=== PATIENT | male | born 1995 | race Caucasian/White ===

== ENCOUNTER 2017-11-02 14:51 | Inpatient (IN) | payer OTHER ==
[2017-11-02] MEDS ORDERED: CEFAZOLIN/Water 2 GM/20 ML SYRINGE ONE (15:02)
[2017-11-02] MEDS ORDERED: Adacel (T-DAP) 0.5 ML VIAL ONE ×2 (15:25→15:29)
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
[2017-11-02 15:37] LABS: #Basophils 0.1 thou/uL (0.0-0.2); #Eosinphils 0.5 thou/uL (0.0-0.7); #Lymphocytes 2.8 thou/uL (1.20-3.40); #Monocytes 0.7 thou/uL (0.11-0.59); #Neutrophils 5.2 thou/uL (1.40-6.50); %Basophils 1.1 % (0.0-1.0); %Lymphocytes 29.9 % (21.0-51.0); %Monocytes 7.9 % (0.0-10.0); %Neutrophils 56.2 % (42.0-75.0); Hemoglobin 16.2 g/dL (14.0-18.0); Mean Corpuscular HGB CONC 31.9 g/dL (32.0-36.0); Mean Corpuscular Hemoglobin 28.1 pg (27.0-31.0); Mean Corpuscular Volume 88.1 fl (80.0-94.0); Platelet Count 410 thou/uL (130-400); RBC Distribution Width 11.6 % (11.5-14.5); Red Blood Cell (RBC) Count 5.77 mill/uL (4.70-6.10); White Blood Cell (WBC) Count 9.3 thou/uL (4.8-10.8)
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
[2017-11-02 15:55] LABS: ALT (SGPT) 39 U/L (8-55); AST (SGOT) 23 U/L (5-34); Albumin 4.6 g/dL (3.5-5.0); Alkaline Phosphatase 51 U/L (40-150); Anion Gap 12 mmol/L (10-20); BUN (Urea Nitrogen) 14 mg/dL (8.9-20.6); Bilirubin, Total 0.7 mg/dL (0.2-1.2); Calc. Creatinine Clearance 0 mL/min (70-130); Calcium 9.7 mg/dL (7.8-10.44); Carbon Dioxide 24 mmol/L (22-29); Chloride 105 mmol/L (98-107); Estimated GFR-MDRD Greater than 90; Globulin 2.6 g/dL (2.4-3.5); Glucose 148 mg/dL (70-105); Potassium 3.8 mmol/L (3.5-5.1); Protein, Total 7.2 g/dL (6.0-8.3); Sodium 137 mmol/L (136-145)
[2017-11-02] MEDS ORDERED: Lidocaine 1% (PF) 30 ML VIAL ONE (16:15)
[2017-11-02] MEDS ORDERED: Morphine 4 MG/ML VIAL ONE (16:39)
[2017-11-02] MEDS ORDERED: Dextrose 50% Abboject 50 ML SYRINGE SLOW IVP PRN (17:33)
[2017-11-02] MEDS ORDERED: Dextrose 5% in Water 1,000 ML IV PRN (17:33)
[2017-11-02] MEDS ORDERED: Ondansetron ODT 4 MG TAB PO PRN (17:33)
[2017-11-02] MEDS ORDERED: hydrALAZINE 20 MG/ML VIAL SLOW IVP PRN (17:33)
[2017-11-02] MEDS ORDERED: Bacitracin Zinc 1 Packet ONE (18:27)
[2017-11-02] MEDS: Famotidine 20 MG TAB PO SCH (20:03)
[2017-11-02] MEDS: Acetaminophen 500 MG TAB PO SCH (20:15)
[2017-11-02] MEDS: traMADol HCl 50 MG TAB PO SCH (20:15)
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
[2017-11-02 21:30] VITALS: BMI 28.5
[2017-11-02] MEDS: traMADol HCl 50 MG TAB PO PRN (21:52)
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
[2017-11-03] MEDS: traMADol HCl 50 MG TAB PO SCH ×2 (01:44→08:49)
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
[2017-11-03] MEDS: Acetaminophen 500 MG TAB PO SCH ×2 (03:07→08:49)
[2017-11-03] MEDS: traMADol HCl 50 MG TAB PO PRN (04:01)
--- NOTE | 2017-11-03 08:42 | CT ---
PRELIMINARY REPORT/[facility]/EMERGENTY AFTER-HOURS PROCEDURE CT Head Without Intravenous Contrast CLINICAL HISTORY: 22 years old, male; Condition or disease; Other: Tbi; Patient HX: F/u traumatic brain injury TECHNIQUE: Axial computed tomography images of the head/brain without intravenous contrast. COMPARISON: CT Brain WO Con 2017-11-02 15:14 FINDINGS: No definite acute skull fracture. Included paranasal sinuses are essentially clear. No acute intracra nial hemorrhage or mass effect. Ventricle size is normal for age. No definite acute infarct by CT. IMPRESSION: No acute intracranial bleed or mass effect. Thank you for allowing us to participate in the care of your patient. Dictated and Authenticated by: Robert Olivera MD 11/03/2017 5:57 AM Central Time ([place] & [place]) FINAL REPORT HEAD CT IWTHOUT CONTRAST: DATE: 11/03/17. COMPARISON: 11/02/17. HISTORY: Recent traumatic brain injury, reevaluate intracranial hemorrhage. FINDINGS: I agree with the preliminary [facility] report. No intracranial hemorrhage, midline shift, mass effect, o r ventricular enlargement. Osseous structures unremarkable. IMPRESSION: No acute findings. POS: [facility]
[2017-11-03] MEDS: Famotidine 20 MG TAB PO SCH (08:50)
[2017-11-03] MEDS ORDERED: Scopolamine 1.5 mg/72 hour Patch TD SCH (10:00)
[2017-11-03 11:45] VITALS: BP 148/90; TEMP 99
== END 2017-11-03 12:52 | disposition home or self-care (01) | DRG 605 ==
LOC: ERS 14:51 → SURG A 17:00
PROVIDERS: ADMIT Surgery; ATTEND Surgery
PROC: 0HQLXZZ Repair Left Lower Leg Skin, External Approach (ICD-10-PCS; principal; 2017-11-02)
DX: S81.012A Laceration without foreign body, left knee, initial encounter (principal); S06.300A Unspecified focal traumatic brain injury without loss of consciousness, initial encounter; S80.811A Abrasion, right lower leg, initial encounter; S60.512A Abrasion of left hand, initial encounter; S60.511A Abrasion of right hand, initial encounter; X58.XXXA Exposure to other specified factors, initial encounter; Y93.89 Activity, other specified; Y92.488 Other paved roadways as the place of occurrence of the external cause; S30.810A Abrasion of lower back and pelvis, initial encounter
CPT/HCPCS: 12042; 36415; 70450; 71045; 72125; 72170; 80053; 85025; 90471; 90715; 96374; 96375; G0390; J2001; J2270

== ENCOUNTER 2017-12-17 14:10 | Outpatient (CLI) | payer OTHER ==
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
== END 2017-12-17 14:11 | disposition home or self-care (01) ==
LOC: TBSIIMAG 14:10
PROVIDERS: ATTEND Orthopaedic Surgery
DX: S83.522A Sprain of posterior cruciate ligament of left knee, initial encounter (principal); S83.242A Other tear of medial meniscus, current injury, left knee, initial encounter; S82.142A Displaced bicondylar fracture of left tibia, initial encounter for closed fracture

== ENCOUNTER → 2018-01-03 | Day surgery (SDC) | payer OTHER ==
[2017-12-31 08:36] VITALS: BMI 28.0
[~2018-01-03] MED LIST: Bupivacaine HCl 0.5%/Epinephrine 1:200,000/PF 30 ml Vial ONE; Clindamycin/D5W 600 mg/50 ml Premix Bag ONE; Fentanyl 100 MCG/2 ML VIAL ONE; Ketorolac Tromethamine 30 MG/ML VIAL ONE; Lidocaine 1% PF 5 ML VIAL ONE; Lidocaine 2% w/Epinephrine 1:200K 20 ML VIAL ONE; Midazolam HCl 2 mg/2 ml Vial ONE; PROPOFOL 20 ML ONE; PROPOFOL 200 MG/20 ML VIAL ONE
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
== END ==
LOC: SDC 08:45
PROVIDERS: ATTEND Orthopaedic Surgery
PROC: 0SBD4ZZ Excision of Left Knee Joint, Percutaneous Endoscopic Approach (ICD-10-PCS; principal; 2018-01-03)
DX: M23.42 Loose body in knee, left knee (principal); J45.909 Unspecified asthma, uncomplicated; F90.9 Attention-deficit hyperactivity disorder, unspecified type; Z88.1 Allergy status to other antibiotic agents
CPT/HCPCS: G8978-GP-CL; G8979-GP-CL; G8980-GP-CL; J0670; J1885; J2001; J2250; J2704; J3010; J3490

== ENCOUNTER 2018-12-08 00:07 | Outpatient (CLI) | payer OTHER ==
[2018-12-08 13:08] LABS: #Eosinphils 0.3 thou/uL (0.0-0.7); #Lymphocytes 2.1 thou/uL (1.20-3.40); #Monocytes 0.6 thou/uL (0.11-0.59); #Neutrophils 3.3 thou/uL (1.40-6.50); %Basophils 0.6 % (0.0-1.0); %Eosinophils 4.9 % (0.0-10.0); %Monocytes 9.8 % (0.0-10.0); %Neutrophils 51.7 % (42.0-75.0); Hemoglobin 15.5 g/dL (14.0-18.0); Mean Corpuscular HGB CONC 34.3 g/dL (32.0-36.0); Mean Corpuscular Hemoglobin 30.4 pg (27.0-31.0); Mean Corpuscular Volume 88.7 fL (78.0-98.0); Mean Platelet Volume 6.4 fL (7.4-10.4); Platelet Count 298 thou/uL (130-400); Red Blood Cell (RBC) Count 5.11 mill/uL (4.70-6.10); White Blood Cell (WBC) Count 6.4 thou/uL (4.8-10.8)
== END 2018-12-08 00:08 | disposition home or self-care (01) ==
LOC: LABBT 00:07
PROVIDERS: ATTEND Orthopaedic Surgery
DX: Z01.812 Encounter for preprocedural laboratory examination (principal); S83.521A Sprain of posterior cruciate ligament of right knee, initial encounter
CPT/HCPCS: 85025

== ENCOUNTER 2018-12-09 05:58 | Day surgery (SDC) | payer OTHER ==
[2018-12-09] MEDS ORDERED: Fentanyl 100 MCG/2 ML VIAL ONE ×2 (06:15→07:06)
[2018-12-09] MEDS ORDERED: Midazolam HCl 2 mg/2 ml Vial ONE (06:15)
[2018-12-09] MEDS ORDERED: Lidocaine 1% (PF) 30 ML VIAL ONE (06:16)
[2018-12-09] MEDS ORDERED: Milk Of Magnesia 30 ML UDCUP PO PRN (07:28)
[2018-12-09] MEDS ORDERED: diphenhydrAMINE 50 MG CAP PO PRN (07:28)
[2018-12-09] MEDS ORDERED: traMADol HCl 50 MG TAB PO PRN ×3 (07:28→08:02)
[2018-12-09] MEDS ORDERED: Ondansetron PF 4 MG/2 ML Vial IVP PRN ×2 (07:28→08:02)
[2018-12-09] MEDS ORDERED: Acetaminophen 500 MG TAB PO PRN (07:28)
[2018-12-09] MEDS ORDERED: Bisacodyl 10 MG SUPP PR PRN (07:28)
[2018-12-09] MEDS ORDERED: Methocarbamol 500 MG TAB PO PRN (07:28)
[2018-12-09] MEDS ORDERED: Morphine 4 MG/ML VIAL SLOW IVP PRN (07:28)
[2018-12-09] MEDS ORDERED: HYDROcodone/Acetaminophen 7.5/325 mg Tablet PO PRN ×2 (07:28)
[2018-12-09] MEDS ORDERED: PROVENTIL INHALER 6.7 G (200 INHALATIONS) INH PRN (07:31)
[2018-12-09] MEDS ORDERED: Clindamycin/D5W 900 mg/50 ml Premix Bag ONE (07:37)
[2018-12-09] MEDS ORDERED: Zolpidem Tartrate 5 MG TAB PO PRN (08:02)
[2018-12-09] MEDS ORDERED: Promethazine HCl 25 MG/ML VIAL IM PRN ×2 (08:02→10:55)
[2018-12-09] MEDS ORDERED: HYDROcodone/Acetaminophen 10/325 mg Tablet PO PRN ×2 (08:02)
[2018-12-09] MEDS ORDERED: Fentanyl 100 MCG/2 ML VIAL IV PRN (08:02)
[2018-12-09] MEDS ORDERED: Ropivacaine 0.2% 550 ML 550 ML NERVE BLCK SCH (08:02)
[2018-12-09] MEDS ORDERED: LISDEXAMFETAMINE DIMESYLATE PO SCH (09:00)
[2018-12-09] MEDS ORDERED: Ropivacaine 0.5% HCl/PF (150 MG/30 ML VIAL) ONE (10:41)
[2018-12-09] MEDS ORDERED: Ropivacaine 0.2% HCl/PF (40 MG/20 ML VIAL) ONE (10:41)
[2018-12-09] MEDS ORDERED: Ondansetron HCl/PF 4 MG/2 ML Vial IVP PRN (10:55)
[2018-12-09] MEDS ORDERED: Promethazine HCl 25 MG/ML VIAL SLOW IVP PRN (10:55)
[2018-12-09] MEDS ORDERED: PROPOFOL 200 MG/20 ML VIAL ONE (11:05)
[2018-12-09] MEDS ORDERED: Ondansetron PF 4 MG/2 ML Vial ONE (11:05)
[2018-12-09] MEDS ORDERED: Dexamethasone 20 MG/5 ML VIAL ONE (11:05)
[2018-12-09] MEDS ORDERED: Lidocaine 1% PF 5 ML VIAL ONE (11:05)
[2018-12-09] MEDS ORDERED: Ketorolac Tromethamine 30 MG/ML VIAL ONE (11:05)
[2018-12-09] MEDS ORDERED: Ketorolac Tromethamine 30 MG/ML VIAL IVP SCH (12:00)
--- NOTE | 2018-12-09 15:26 | OP ---
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 POSTOPERATIVE DIAGNOSES: 1. 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 2. Significant chondromalacia medial tibial plateau as well as the medial femoral condyle as well as some early chondromalacia on the medial facet of the patella. COLD STORAGE WORKER: Dr. Garcia as well as Samuel Sheth PA-C. The patient did have a general anesthetic as well as preoperative block. IMPLANTS: We used a 7 x 25 mm interference screw on the femur. We used a 9 x 28 mm BioComposite interference screw on the tibia as well as a bicortical metal screw with a soft tissue washer on the tibia. DISPOSITION: He did go to recovery room in stable condition. INDICATIONS: A 23-year-old male, who is nearly a year out from a traumatic injury, and at this time, he continues to have significant instability of his PCL and wanted to have this reconstructed. DESCRIPTION OF PROCEDURE: After verbal consent forms were explained and signed, he was taken to the operating room, and at this time, he was given general anesthetic. Once the level of anesthesia was appropriate, the tourniquet was placed onto the left thigh, and at this time, an exam under anesthesia was performed. A 3+ posterior drawer was confirmed, and the tibia did not bring back on its own. Melvina was negative. He had stable varus valgus. At this time, we then placed the leg in arthroscopic leg gil. We then prepped and draped in standard surgical fashion. The limb was exsanguinated and the tourniquet was taken to 300 mmHg. Inferolateral portal was established. Scope was placed into the knee joint. A needle localization technique was then used to make a medial working portal. Diagnostic arthroscopy commenced in the notch. The remnant PCL was there, and ACL was in good condition. There were a lot of small cartilaginous loose bodies floating around the knee, these were all removed with a suction shaver throughout this portion of the scope. Medial compartment showed the medial meniscus to be intact. There was some significant chondromalacia on the tibial plateau. Any loose chondral flaps were removed. Lateral compartment was in good condition. Gutters were swept through. No loose bodies were noted, and the patellofemoral joint showed the patient showed the patient started developing medial patellar arthritis. Trochlea was stable in good condition. At this time, we went about creating our posterior medial portal. The Arthrex posterior portal device was used through the lateral portal with the scope in the medial portal, and once were able to get around the back of the medial femoral condyle, we were able to palpate this, pushed it toward the skin, and then, we were able to cut down on this. We then placed a cannula down over top of this, and then, I used a switching stick to place the second metal photostat operator down into the posteromedial aspect of the knee. Once this was done, we then placed the camera into this posteromedial portal to evaluate the back of the knee. The shelf between the posterior tibial plateau and capsule was noted. A probe was used to delineate this, and at this time, we started a slow copious method to separate the posterior capsule from the posterior aspect of the tibia. We made sure where the posterior horns of medial and lateral meniscus were located, so that we did not injure the attachment sites. Using a combination of the surface energy, the shaver, and the liberator/rasp, we were able to free this area up. This took nearly 15 minutes to do so. Once this was done, we were confident that we were deep enough. The guide was placed into the knee joint. The guide set nicely between the mamillary bodies and we then placed our metal photostat operator into the tibial bone. We then chose a 10.5 mm FlipCutter to ream our tunnel with. This was slowly drilled through the tibia, and once we got through the second cortex, we felt that we were against the guide. We were then able to directly visualize it. This was pushed slowly forward while we used the guide as a protector of the soft tissues posterior to this. We then were able to flip our FlipCutter and then start to ream our tibial tunnel. We reamed all the way through the tibia bicortically. We then used a combination of the shaver and the surface energy to clean the orifice of the tunnel both anterior cortex as well as posteriorly. Once this was done, a red straw was used to pass a passing suture up through the tibial tunnel. This was grasped through the medial portal and clipped outside the knee. We then placed a plug in the tibia. To drill our femoral side with the camera in the medial portal, a 10 mm reamer was placed onto the surface where the remnant of the PCL was located recreating our anterolateral bundle. Through this, the guide pin was placed up and out the medial thigh. We then cut down through skin and fascia sharply. Bovie was used to coagulate any brisk venous bleeding. Finger dissection was then used to get down through the VMO to the underlying femur. Once we were able to visualize the femur, we then reamed bicortically from outside in. Again, all loose bony and cartilaginous debris was removed from the knee joint. At this time, we then pulled our passing suture that we pulled up our tibia ready out through the femoral side and we used this to pull a Ronan-Rancho smoother into the knee joint. We then ran the Ronan-Rancho smoother through our femoral and tibial tunnel multiple times to chamfer any rough edges. Once this was done, the Ronan-Rancho smoother was then used to pull our graft into the knee, going down through the femur and then down into the tibia with the soft tissue site first. We then docked our bone plug against our medial femoral cortex, and once that had been placed all the way in guidewire was used to place a 7 x 25 metal interference screw for a femoral fixation. The knee was then taken through a full range of motion including flexion and extension, and once we had done this, an approximately 80 degrees of flexion with an anterior drawer being applied. We then placed a 9 x 28 mm BioComposite interference screw up our tibial tunnel. We then drilled tapped and placed the bicortical screw with an 18 mm soft tissue washer to back this up. Once this was done, knee was taken through full range of motion again and was felt to have significantly improved stability with the tibia sitting forward on the femur at this time, and this was the end of this portion of the procedure. The scope was then removed. The knee was drained. We then went about thoroughly irrigating and repairing our soft tissue incisions. Deep Vicryl followed by 2-0 Vicryl and nylon sutures were then used to close all of our incisions and portals. Once this was done, the tourniquet was let down right around the 2-hour ruthy. A bulky sterile dressing was applied. The toes pinked up nicely. The patient was then awakened, taken to recovery room in stable condition. All counts were correct at the end of the case, and he did receive preoperative IV antibiotics. Job ID: [id number]
[2018-12-09 16:00] VITALS: BMI 26.6
[2018-12-09] MEDS: Famotidine 20 MG TAB PO SCH ×2 (16:08→21:52)
[2018-12-09] MEDS: Dextrose 5 %-0.45 % NaCl 1,000 ML IV SCH ×2 (16:08→18:59)
[2018-12-09] MEDS: Ketorolac Tromethamine 30 MG/ML VIAL IVP SCH ×3 (16:09→23:57)
[2018-12-09] MEDS: Vancomycin HCl 1 GM in Premix Bag 1 BAG IVPB SCH ×2 (16:09→21:32)
[2018-12-09] MEDS: Clindamycin/D5W 900 MG in Premix Bag 1 BAG IVPB SCH ×2 (16:38→22:42)
[2018-12-10] MEDS: Dextrose 5 %-0.45 % NaCl 1,000 ML IV SCH (04:57)
[2018-12-10] MEDS: Ketorolac Tromethamine 30 MG/ML VIAL IVP SCH ×2 (06:53→11:29)
[2018-12-10 08:27] VITALS: BP 130/77
[2018-12-10] MEDS: Famotidine 20 MG TAB PO SCH (08:27)
[2018-12-10] MEDS: Vancomycin HCl 1 GM in Premix Bag 1 BAG IVPB SCH (10:07)
[2018-12-10 12:03] VITALS: TEMP 98.3
== END 2018-12-10 13:00 | disposition home or self-care (01) ==
LOC: SDC 05:58 → SURG A 10:59 → UNDOADMOB 10:59 → UNDODISOB 12-10 13:00 → SDC 12-10 13:00
PROVIDERS: ATTEND Orthopaedic Surgery
PROC: 0MSP4ZZ Reposition Left Knee Bursa and Ligament, Percutaneous Endoscopic Approach (ICD-10-PCS; principal; 2018-12-10)
DX: S83.522A Sprain of posterior cruciate ligament of left knee, initial encounter (principal); M22.42 Chondromalacia patellae, left knee; M17.12 Unilateral primary osteoarthritis, left knee; Z91.013 Allergy to seafood; Z79.2 Long term (current) use of antibiotics; Z79.899 Other long term (current) drug therapy; X58.XXXA Exposure to other specified factors, initial encounter
CPT/HCPCS: A4306; C1713; J0690; J1885; J2001; J2250; J2795; J3010; J3370; J3490